=== PATIENT | female | born 1955 | race Caucasian/White ===

== ENCOUNTER 2024-10-02 23:51 | Emergency (ER) | payer MEDICARE, MEDICAID ==
[~2024-10-02] VITALS: Ht 167.6 cm; Wt 63.5 kg
[2024-10-03] MEDS ORDERED: NAPR-1192 PO (01:03)
[2024-10-03] MEDS ORDERED: KETOROLAC TROMETHAMINE 15 MG INJ ONE (01:15)
[2024-10-03] MEDS: KETOROLAC TROMETHAMINE 15 MG INJ IM ONE (01:19)
[2024-10-03 01:21] VITALS: BP 116/74; O2SAT 97
== END 2024-10-03 01:22 | disposition home or self-care (01) ==
LOC: ER 23:51
DX: M54.6 Pain in thoracic spine (principal); M54.2 Cervicalgia; F17.200 Nicotine dependence, unspecified, uncomplicated; Z59.00 Homelessness unspecified
CPT/HCPCS: 99283; 96372; J1885; A4606; A4663